=== PATIENT | female | born 1985 | race Caucasian/White ===

== ENCOUNTER 2016-11-12 14:15 | Emergency (ER) | payer OTHER, SELFPAY ==
[2016-11-12] MEDS ORDERED: Clindamycin 150 MG CAP ONE (14:34)
[2016-11-12] MEDS ORDERED: Ibuprofen 800 MG TAB ONE (14:35)
[2016-11-12] MEDS ORDERED: HYDROcodone/Acetaminophen 10/325 mg Tablet ONE (14:35)
[2016-11-12] MEDS ORDERED: Bupivacaine 0.5% 10 ML VIAL ONE (14:47)
[2016-11-12] MEDS ORDERED: Bacitracin Zinc 1 Packet ONE (14:57)
== END 2016-11-12 15:09 | disposition home or self-care (01) ==
LOC: BURERS 14:15
DX: L03.011 Cellulitis of right finger (principal); F17.210 Nicotine dependence, cigarettes, uncomplicated
CPT/HCPCS: 10060; 87070; 87077; 87186; 87205; J3490

== ENCOUNTER 2017-03-29 16:47 | Emergency (ER) | payer OTHER, SELFPAY ==
[2017-03-29] MEDS ORDERED: HYDROcodone/Acetaminophen 5/325 mg Tablet ONE (17:39)
[2017-03-29] MEDS ORDERED: Sulfameth/Trimethoprim DS 800-160mg TAB ONE (17:39)
== END 2017-03-29 17:46 | disposition home or self-care (01) ==
LOC: BURERS 16:47
DX: L02.412 Cutaneous abscess of left axilla (principal); F17.210 Nicotine dependence, cigarettes, uncomplicated
CPT/HCPCS: 10060; 87070; 87077; 87186; 87205

== ENCOUNTER 2017-03-30 15:30 | Emergency (ER) | payer OTHER ==
[2017-03-30] MEDS ORDERED: Ibuprofen 800 MG TAB ONE (15:48)
== END 2017-03-30 15:54 | disposition home or self-care (01) ==
LOC: BURERS 15:30
DX: Z48.817 Encounter for surgical aftercare following surgery on the skin and subcutaneous tissue (principal); F17.210 Nicotine dependence, cigarettes, uncomplicated; Z79.899 Other long term (current) drug therapy
CPT/HCPCS: 99282

== ENCOUNTER 2017-09-20 19:29 | Emergency (ER) | payer OTHER ==
[2017-09-20 20:15] LABS: Bilirubin Negative (Negative); Blood, Urine Moderate (Negative); Clarity Clear (Clear); Glucose, Urine (Dipstick) Negative (Negative); Leukocyte Trace (Negative); Nitrite Negative (Negative); Protein, Urine (Dipstick) Negative (Neg-Trace); Urobilinogen 0.2 mg/dL (0.2-1.0)
[2017-09-20 20:16] LABS: #Basophils 0.1 thou/uL (0.0-0.2); #Eosinphils 0.4 thou/uL (0.0-0.7); #Lymphocytes 2.4 thou/uL (1.20-3.40); #Monocytes 0.6 thou/uL (0.11-0.59); #Neutrophils 5.6 thou/uL (1.40-6.50); %Basophils 0.9 % (0.0-1.0); %Eosinophils 4.6 % (0.0-10.0); %Lymphocytes 26.3 % (21.0-51.0); %Monocytes 6.1 % (0.0-10.0); %Neutrophils 62.2 % (42.0-75.0); Hemoglobin 11.9 g/dL (12.0-16.0); Mean Corpuscular HGB CONC 32.1 g/dL (32.0-36.0); Mean Corpuscular Hemoglobin 26.3 pg (27.0-31.0); Mean Platelet Volume 7.7 fL (7.4-10.4); Platelet Count 323 thou/uL (130-400); RBC Distribution Width 15.8 % (11.5-14.5); Red Blood Cell (RBC) Count 4.51 mill/uL (4.20-5.40)
[2017-09-20 20:19] LABS: Pregnancy Test - Urine (BHCG) Negative (Negative); Pregu Control Background? CLEAR/WHITE (CLR/WHITE); Pregu Control Bar Appear? YES (CONTROL BAR); Specific Gravity 1.007 (1.002-1.036)
[2017-09-20 20:20] LABS: Specific Gravity, Urine 1.007 (1.002-1.036)
[2017-09-20 20:24] LABS: Bacteria/HPF Rare-Few HPF (None Seen); Crystals/HPF None Seen HPF (Negative); Hyaline Casts/LPF NONE SEEN LPF (0-3 Hyaline); Other Casts/LPF None Seen LPF (0-3 Hyaline); Oval Fat Bodies/HPF None Seen HPF (None Seen); RBC/HPF 0-3 HPF (0-3); Renal Epithelial None Seen HPF (0-3); Sperm/HPF None Seen HPF (None Seen); Transitional Epithelial NONE SEEN HPF (0-3); Trichomonas/HPF None Seen HPF (None Seen); WBC/HPF 0-3 HPF (0-3); Yeast-All Forms None Seen HPF (None Seen)
[2017-09-20 20:25] LABS: Amphetamine Detected (NotDetected); Barbiturates Screen Not Detected (NotDetected); Benzodiazepine Screen Not Detected (NotDetected); Cocaine Metabolite Screen Not Detected (NotDetected); Medtox Control Line Valid? VALID (VALID); Methadone Not Detected (NotDetected); Methamphetamine Detected (NotDetected); Opiate Screen Not Detected (NotDetected); Oxycodone Screen Not Detected (NotDetected); Phencyclidine (PCP) Not Detected (NotDetected); THC/Cannabinoid Screen Not Detected (NotDetected); Tricyclic Screen Not Detected (NotDetected)
[2017-09-20 20:31] LABS: ALT (SGPT) 17 U/L (8-55); AST (SGOT) 24 U/L (5-34); Acetaminophen Less than 6.0 mcg/mL (10.0-30.0); Albumin 4.2 g/dL (3.5-5.0); Alcohol Less than 10 mg/dL (Less than 10); Alkaline Phosphatase 75 U/L (40-150); Anion Gap 15 mmol/L (10-20); BUN (Urea Nitrogen) 4 mg/dL (7.0-18.7); Bilirubin, Total 0.3 mg/dL (0.2-1.2); Calc. Creatinine Clearance 0 mL/min (70-130); Calcium 9.3 mg/dL (7.8-10.44); Carbon Dioxide 24 mmol/L (22-29); Chloride 106 mmol/L (98-107); Estimated GFR-MDRD Greater than 90; Globulin 3.4 g/dL (2.4-3.5); Glucose 98 mg/dL (70-105); Protein, Total 7.6 g/dL (6.0-8.3); Salicylate Less than 8.0 mg/dL (15.0-30.0); Sodium 142 mmol/L (136-145)
[2017-09-20 21:06] LABS: Potassium 2.7 mmol/L (3.5-5.1)
[2017-09-20 21:34] LABS: Potassium 2.8 mmol/L (3.5-5.1)
[2017-09-20] MEDS ORDERED: Potassium Chloride 20 MEQ TAB ONE (21:37)
[2017-09-21] MEDS ORDERED: Potassium Chloride 20 MEQ TAB ONE ×2 (02:03→09:37)
[2017-09-21 05:19] LABS: Potassium 3.4 mmol/L (3.5-5.1)
== END 2017-09-21 11:00 ==
LOC: BURERS 19:29
DX: F15.10 Other stimulant abuse, uncomplicated (principal); F11.10 Opioid abuse, uncomplicated; M19.90 Unspecified osteoarthritis, unspecified site; F17.210 Nicotine dependence, cigarettes, uncomplicated; Z79.899 Other long term (current) drug therapy
CPT/HCPCS: 36415; 80053; 80306; 80307; 81003; 81015; 81025; 85025; 93005

== ENCOUNTER 2018-03-20 20:33 | Emergency (ER) | payer OTHER, SELFPAY ==
[2018-03-20] MEDS ORDERED: Sulfameth/Trimethoprim DS 800-160mg TAB ONE ×2 (20:51)
== END 2018-03-20 21:15 | disposition home or self-care (01) ==
LOC: BURERS 20:33
DX: L02.416 Cutaneous abscess of left lower limb (principal); F32.9 Major depressive disorder, single episode, unspecified; F17.210 Nicotine dependence, cigarettes, uncomplicated
CPT/HCPCS: 10060

== ENCOUNTER 2018-03-24 11:53 | Emergency (ER) | payer OTHER, SELFPAY ==
[2018-03-24] MEDS ORDERED: Cephalexin 500 MG CAP ONE ×2 (12:40→12:42)
[2018-03-24] MEDS ORDERED: Cephalexin 250 MG CAP ONE (12:45)
== END 2018-03-24 12:44 | disposition home or self-care (01) ==
LOC: BURERS 11:53
DX: Z48.817 Encounter for surgical aftercare following surgery on the skin and subcutaneous tissue (principal); F17.210 Nicotine dependence, cigarettes, uncomplicated
CPT/HCPCS: 87070; 87077; 87186; 87205; 99283

== ENCOUNTER 2018-09-29 04:48 | Emergency (ER) | payer OTHER, SELFPAY ==
[2018-09-29] MEDS ORDERED: methylPREDNISolone Sod Succ/PF 125 MG/2 ML VIAL ONE (04:55)
[2018-09-29] MEDS ORDERED: diphenhydrAMINE 25 MG CAP ONE (05:45)
== END 2018-09-29 05:58 ==
LOC: BURERS 04:48
DX: T78.40XA Allergy, unspecified, initial encounter (principal); F17.210 Nicotine dependence, cigarettes, uncomplicated
CPT/HCPCS: 96372; J2930; Q0163